=== PATIENT | male | born 1955 | race Caucasian/White ===

== ENCOUNTER → 2018-04-06 | Outpatient (CLI) | payer OTHER | END | disposition home or self-care (01) | LOC: SHCH 12:37 | PROVIDERS: ATTEND Internal Medicine Cardiovascular Disease | DX: I35.0 Nonrheumatic aortic (valve) stenosis (principal); I70.0 Atherosclerosis of aorta | CPT/HCPCS: 93306 ==

== ENCOUNTER → 2024-09-25 | Outpatient (CLI) | payer OTHER ==
[2024-09-25] MEDS: REGADENOSON 0.4 MG/5 ML PF SYG IVP ONE (14:32)
--- NOTE | 2024-09-26 10:14 | HMCSR ---
APPROVED REPORT Height: 5 ft 9in Weight: 179 lbs TEST INDICATIONS CAD The imaging protocol used to acquire images was Rest Tc-99m/stress Tc-99m 1 day Consent: The procedure was explained and understood by the patient. Informerd consent was witnessed Norbert Jorgensen RN First, low dose rest was performed then high dose stress. RESTING DATA: The resting ekg shows: NSR Rest SPECT myocardial perfusion imaging was performed in supine position 62 minutes following the int ravenous injection of 10.8 mCi of Tc-99 Sestamibi. Time of rest injection: 08:47: Date: 09/25/2024 Time of rest imagin:49: Date: 09/25/2024 PHARMACOLOGIC STRESS: Pharmacologic stress test was performed by injecting regadenoson 0.4 mg IV push followed by the intra venous injection of 31.1 mCi of Tc-99 Sestamibi. Time of stress injection: 10:12: Date: 09/25/2024 Time of stress imagin:09: Date: 09/25/2024 Heart Rate at time of stress injection: 63 bpm. Gated Stress SPECT was performed 62 minutes after stress injection. The images were gated to evaluate regional wall motion and calculate left ventricular ejection fracti on. STRESS DETAILS Reason for Termination: Infusion complete Stress Symptoms: Dyspnea Max HR Achieved: 87 bpm % of APMHR Achieved: 58 Max Blood Pressure: 127/72 mmHg Stress ECG: NSR Conclusion There is a predominantly fixed defect in the inferior wall consistent with diaphragm attenuation joshua fact LV ejection fraction of 56% Normal LV wall motion No evidence of increased lung uptake Normal LV size at rest and stress There is a 10 to 15% chance that myocardial ischemia was missed on this exam.
== END | disposition home or self-care (01) ==
LOC: SHCH 08:22
PROVIDERS: ATTEND Internal Medicine Cardiovascular Disease
DX: I25.10 Atherosclerotic heart disease of native coronary artery without angina pectoris (principal); R07.9 Chest pain, unspecified; R06.00 Dyspnea, unspecified
CPT/HCPCS: 78452; 93017; J2785; A9500 ×2

== ENCOUNTER → 2024-10-18 | Outpatient (CLI) | payer OTHER ==
--- NOTE | 2024-10-19 14:32 | HMCSR ---
APPROVED REPORT EXAM: Two-dimensional and M-mode echocardiogram with Doppler and color Doppler. INDICATION ICD: I35.0 Non-rheumatic aortic valve stenosis 2D Dimensions RVDd4.0 cmLVEF(%)55.0 (>50%)LVED Vol(simp.)123.0 mL IVSd0.8 (0.7-1.1cm)FS(%)29 %LVES Vol(simp.)55.0 mL LVDd5.2 (3.8-5.6cm)Ao Root(2D)2.7 (2.0-3.7cm)LVEF(%, simp.)55 % PWd0.7 (0.7-1.1cm)LVOT diam2.1 (1.8-2.4cm)LA ESV INDEX (BP)40.23 mL/m2 LVDs3.7 (2.5-4.0cm)IVC diam1.4 cm Aortic Valve AoV Vmax3.6 m/Tian Peak GR50.9 mmHgLVOT Vmax0.8 m/s AoV VTI0.9 mAo Mean GR32.0 mmHgLVOT VTI0.20 m RENO (VMAX)0.8 cm2Al P1/2T447 msAVA (VTI) 0.8 cm2 Mitral Valve MV E Vmax85.9 cm/sDECEL Ugdu447 ms MV A Vmax45.8 cm/sP 1/2 T71 ms E/A ratio1.9MVA (PHT)3.1 cm2 MR Max PG85 mmHg TDI E/E' Lyemhu91.7E/E' Ybmwiui72.0 Pulmonary Valve PV Vmax0.7 m/sPV VTI0.17 mPV Mean GR1 mmHg PV Peak GR1.7 mmHgPI End Clotilde. Dada 1.0 cm/s Tricuspid Valve RAP (EST) 3 mmHg Left Ventricle The left ventricle structure and function is normal. There is normal LV segmental wall motion. There is normal left ventricular wall thickness. LVEF is 50-55%. Indeterminate diastolic dysfunction. Right Ventricle The right ventricle is normal size. The right ventricular systolic function is normal. Atria The left atrium is mildly dilated. The right atrium size is normal. Aortic Valve Aortic valve is trileaflet. The aortic valve is calcified and displays decreased opening. Mild aortic regurgitation. AV Dimensionless Index is 0.22 Moderate to severe aortic stenosis. Calculated aortic valve area is 0.8 cm2 with maximum pressure gradient of 50.9 mmHg and mean pressure gradient of 32 mm Hg. Mitral Valve Mitral valve leaflets are mildly sclerotic but open well. Mitral annular calcification is mild. Chelo l regurgitation is trace to mild. There is no mitral valve stenosis. Tricuspid Valve The tricuspid valve leaflets appear normal. There is trace tricuspid regurgitation. Pulmonic Valve Pulmonic valve is not well visualized. There is trace pulmonic valvular regurgitation. Great Vessels The aortic root is normal in size. The IVC is normal in size and collapses >50% with inspiration. Pericardium No pericardial effusion. Conclusion LVEF is 50-55%. Aortic valve is trileaflet. The aortic valve is calcified and displays decreased opening. Mild aortic regurgitation. Moderate to severe aortic stenosis. Calculated aortic valve area is 0.8 cm2 with maximum pressure gra dient of 50.9 mmHg and mean pressure gradient of 32 mmHg. Mitral regurgitation is trace to mild. There is trace tricuspid regurgitation.
== END | disposition home or self-care (01) ==
LOC: SHCH 12:41
PROVIDERS: ATTEND Internal Medicine Cardiovascular Disease
DX: I08.0 Rheumatic disorders of both mitral and aortic valves (principal); I35.0 Nonrheumatic aortic (valve) stenosis
CPT/HCPCS: 93306

== ENCOUNTER 2025-03-06 05:56 | Day surgery (SDC) | payer OTHER ==
[2025-03-04 10:09] VITALS: BP 116/60; PULSE 66; RESP 14; TEMP 97.3
[2025-03-04 10:20] LABS: IMMATURE GRANULOCYTE ABSOLUTE 0.02 K/uL (0-1); NUCLEATED RED BLOOD CELLS 0.0 % (0.0-0.19); PLATELET COUNT (AUTO) 223 K/uL (130-400); RED BLOOD CELL COUNT(AUTO) 5.01 MIL/uL (4.50-6.20); RED CELL DISTRIBUTION WIDTH 12.7 % (11.0-15.5); WHITE BLOOD COUNT (AUTO) 6.2 K/uL (4.8-10.8)
[2025-03-04 10:22] LABS: APPEARANCE,URINE CLEAR (CLEAR); GLUCOSE, URINE (UA) NEGATIVE (NEGATIVE); LEUKOCYTE ESTERASE ,URINE NEGATIVE Leu/uL (NEGATIVE); NITRATE,URINE NEGATIVE (NEGATIVE); OCCULT BLOOD,URINE NEGATIVE (NEGATIVE)
[2025-03-04 10:26] LABS: CREATININE 1.0 mg/dL (0.5-1.3); GLOMERULAR FILTR. RATE CALC 81.0 mL/min (>90); GLUCOSE,RANDOM 84.0 mg/dL (70-105); SODIUM SERUM 140.0 mmol/L (136-145); UREA NITROGEN, BLOOD 17.0 mg/dL (7-18)
[2025-03-04 10:28] LABS: INR 1.01 (0.85-1.15)
[2025-03-04 10:42] LABS: ADD UA MICROSCOPIC NO
--- NOTE | 2025-03-04 10:56 | EKG ---
[facility] Test Date: 2025-03-04 Test Time: 09:57:56 Pat Name: FRANKY CLARK Department: [facility] Room: Gender: M Plumber: [id number] : 1955 Requested By: JAZMINE MOCTEZUMA Order Number: [id number] Reading MD: Bob Edmonds Measurements Intervals [place] Rate: 67 P: 68 ME: 162 QRS: 46 QRSD: 87 T: 28 QT: 392 QTc: 413 Interpretive Statements Sinus rhythm No previous ECG available for comparison Electronically Signed On 03-04-2025 18:38:40 CDT by Bob Edmonds Please click the below link to view image of tracing.
--- NOTE | 2025-03-04 22:24 | HMCIMG ---
EXAM: CR Chest, single view CLINICAL HISTORY: Preop COMPARISON: None provided. FINDINGS: The lungs show no infiltrate or other acute findings. No pleural effusion or pneumothorax. The cardiomediastinal silhouette is within normal limits. No acute osseous abnormality. Degenerative changes in the mid and lower thoracic spine. IMPRESSION: No acute cardiopulmonary pathology is evident. /Brainard
[2025-03-06] VITALS (11 sets, daily range): BP systolic 99–139; BP diastolic 50–66; PULSE 58–69; RESP 10–14; TEMP 97.4–97.5
[~2025-03-06] VITALS: Ht 175.3 cm; Wt 80.2 kg
[~2025-03-06 05:56] MED LIST: ASPI-1005 PO; LOSA25TA41 PO; METO-408 PO; NITR0.4T50 SL; ROSU40TA88 PO; TADA20TA PO
[2025-03-06] MEDS: 0.9%NACL 1000ML 1,000 ML IV SCH (06:57)
[2025-03-06] MEDS ORDERED: LIDOCAINE HCL 400MG/20ML VIAL ONE (07:06)
[2025-03-06] MEDS ORDERED: IOHEXOL 350 MG/ML 100ML INFUS..BTL IV ONE (07:06)
[2025-03-06] MEDS ORDERED: HEParin-NS 1,000 UNIT/500 ML 1,000 ML IV ONE (07:07)
[2025-03-06] MEDS ORDERED: HEParin-NS 1,000 UNIT/500 ML 500 ML IV ONE ×2 (07:09→08:09)
[2025-03-06] MEDS ORDERED: MIDAZOLAM HCL 1 MG/ML 2ML VIAL ONE (07:34)
[2025-03-06] MEDS ORDERED: ASPIRIN 325MG EC TAB PO ONE (08:40)
[2025-03-06] MEDS ORDERED: NITROGLYCERIN 50MG/D5W 250ML 1 BOT IV PRN (09:00)
[2025-03-06] MEDS ORDERED: CLOP75TA32 PO (09:01)
--- NOTE | 2025-03-06 09:12 | PRN ---
Cath Procedure Report CATH PROCEDURE REPORT CARDIAC CATHETERIZATION REPORT Date of Service: Mar 06, 2025 After informed consent the patient was prepped and draped in the usual fashion. He received 1 mg of Versed for conscious sedation. He received 20 cc of 2% xylocaine in the right inguinal area. A six [place] sheath was introduced into the right femoral artery using modified Seldinger technique. A seven [place] s bladimir was introduced into the right femoral vein using modified Seldinger technique. A [place]-Don catheter was advanced under fluoroscopic guidance to the left pulmonary artery and PA pressure measured. A pigtail catheter was advanced over guidewire to the aortic root. Wire was removed and exchanged for a straight wire which was used to cross the valve. Simultaneous wedge and EDP measurements were taken. A pullback with continuous hemodynamic monitoring was performed and the pigtail catheter was removed. Thermodilution cardiac outputs were measured. A right heart pullback was performed with measurement of PA pressure RV pressure and RA pressure. [place]-Don catheter was removed. A Dori four right six [place] diagnostic catheter was advanced over guidewire to the aortic root. Wire was removed and catheter engaged into the bill moore[place] slough right coronary artery which was visualized multiple planes. Catheter was removed. A Dori four left six [place] diagnostic catheter was advanced over guidewire to the aortic root. Wire was removed and catheter engaged into left main coronary artery. The left coronary system was visualized multiple planes. Catheter was removed. Findings: The aortic valve is mildly calcified under fluoroscopy. There was a 30 mm peak gradient across the valve with a cardiac output of 4.47 and calculated valve area was 0.92 centimeters squared consistent with moder [id number] aortic stenosis. There was no evidence for mitral stenosis. Previous ejection fraction by echo has been greater than 55%. The right coronary artery is a codominant vessel. There was a 60-70% proximal stenosis. The remainder of the vessel is free of obstruction gives rise to normal PDA. The left main coronary artery is free of obstruction. The circumflex artery is a codominant vessel and has a stent in the distal portion of the vessel. There was a diffuse 20% InStent restenosis with normal ISAAC flow. The 1st obtuse marginal artery is a small caliber vessel with a 70% mid stenosis. The 2nd obtuse marginal artery is free of obstruction in his again a very small less than 1 mm diameter vessel. The LAD has a mid stent that was placed with a 2.5 x 18 mm stent now has a 90% InStent restenosis with extension of the stenosis proximal and distal to the original stent. The diagonal artery is free of obstruction. Was felt that the patient's symptoms unlikely be coming from the mid LAD stent and it was recommended to undergo PCI. The patient received 8000 units of heparin and with ACT monitoring during the procedure received an additional 2000 units during the procedure based on ACT measurements. A JL 3.5 guiding catheter six [place] was advanced over guidewire to the aortic root. Wire was removed and catheter engaged into the left main coronary artery. A choice PT extra-support wire was used to cross the InStent restenosis and was placed in the distal LAD. A 2.75 by 20 mm noncompliant balloon was then used to dilate the stent as well as proximal distal edges. A 2.75 x 26 mm drug-eluting stent was then placed across the area of stenosis in the original stent and extended proximally and distally and was dilated to 20 atmospheres. The balloon was removed and the original noncompliant balloon 2.75 x 20 mm Hg was used to dilate the distal portion of the stent and proximal portion of the stent to 25 atmospheres. Stenosis was reduced from 90% with a small distal 10% stenosis in the distal portion of the new stent. ISAAC flow was preserved with no evidence of dissection. Flow in the LAD actually appeared to improve and the size of the LAD appeared to improve with reperfusion. A sheathogram performed and Perclose device applied. The venous sheath was removed and Vascade applied. The entire procedure was well tolerated without complications. Summary: [id number] aortic stenosis, mid LAD InStent restenosis status post successful PCI with residual stenosis in his small obtuse marginal artery diffuse 20% InStent stenosis of the distal circumflex artery and 60-70% proximal RCA stenosis being managed medically Report dictated by JAZMINE Hackett MD, MD Mar 06, 2025 09:12
--- NOTE | 2025-03-06 11:03 | NUR ---
Patients remains with SR and V/S wnl. Denies c/o pain or issue. Femoral dressing clean, dry and intact. No bleeding, bruising or issue. No evidence of hematoma. Educated Patient of importance of not bending right leg and POC until discharge. Voiced understanding in full. Eating Lunch with assistance of . Stent card given to who then placed in the Patients wallet. HOB at 15'. SR's up x 2. Call light in reach.
--- NOTE | 2025-03-06 14:07 | NUR ---
Very small amount of bleeding to 2x2 under op site after getting up to bathroom. No bleeding, bruising or hematoma. Applied D Stat Femoral at 1400 pm as precaution. Dressing now dressing clean, dry and intact. Educated Patient of importance of not bending right leg and POC until discharge. Voiced understanding in full. Full discharge instructions given to Patient and . POC to discharge at 3 pm as long as no further femoral issue. Reported off to receiving Nurse, Babs.
--- NOTE | 2025-03-06 15:00 | NUR ---
BOTH PT AND GIVEN VERBAL AND WRITTEN DISCHARGE INSTRUCTIONS IV REMOVED SITE ASYMPTOMATIC, RIGHT GROIN ASYMPTOMATIC. PT TAKEN OUT VIA WHEELCHAIR DRIVING
== END 2025-03-06 15:05 | disposition home or self-care (01) ==
LOC: DAH 05:56
PROVIDERS: ATTEND Internal Medicine Cardiovascular Disease
DX: I35.0 Nonrheumatic aortic (valve) stenosis (principal); I25.10 Atherosclerotic heart disease of native coronary artery without angina pectoris; T82.855A Stenosis of coronary artery stent, initial encounter; I25.2 Old myocardial infarction; I34.0 Nonrheumatic mitral (valve) insufficiency; K21.9 Gastro-esophageal reflux disease without esophagitis; E78.5 Hyperlipidemia, unspecified; R06.09 Other forms of dyspnea; I10 Essential (primary) hypertension; Z79.82 Long term (current) use of aspirin; Z79.899 Other long term (current) drug therapy; Z95.5 Presence of coronary angioplasty implant and graft; Y71.2 Prosthetic and other implants, materials and accessory cardiovascular devices associated with adverse incidents
CPT/HCPCS: 80048; 83880; 85025; 85610; 85730; 81003; 36415; 71045; 93005; 85347 ×2; 93460; 99156; 99157 ×4; C9600; C1769 ×3; C1887; C1894 ×2; C1874; C1760 ×2; C1725; J3490; J1644 ×4; J2250; Q9967; A4215; A4335; A4222; A4221; A4663; A4216; A4606; Q9965 ×2; A4223 ×3; A4554